=== PATIENT | male | born 1965 | race American Indian/Alaskan Native ===

== ENCOUNTER 2017-04-11 20:12 | Emergency (ER) | payer SELFPAY ==
[2017-04-11 20:39] VITALS: BP 127/90
[2017-04-11 21:16] LABS: Anion Gap 19 mmol/L; BUN/Creatinine Ratio 5.55; Blood Urea Nitrogen 5 mg/dL (9-20); Calcium 8.8 mg/dL (8.4-10.2); Carbon Dioxide 26 mmol/L (22-30); Chloride 102.3 mmol/L (98-107); Eosinophils % (Auto) 2.7 % (0.0-4.3); Glucose 95 mg/dL (75-100); Hematocrit 50.2 % (35.5-45.6); Hemoglobin 16.8 gm/dl (11.8-15.2); Mean Corpuscular HGB Conc 33 % (32-34); Mean Corpuscular Hemoglobin 33 pg (28-32); Mean Corpuscular Volume 99 fl (84-94); Platelet Count 339 K/mm3 (140-440); Potassium 4.6 mmol/L (3.6-5.0); Red Blood Count 5.06 M/mm3 (3.65-5.03); Red Cell Distribution Width 13.6 % (13.2-15.2); Sodium 143 mmol/L (137-145); White Blood Count 10.2 K/mm3 (4.5-11.0)
--- NOTE | 2017-04-13 01:30 | ED Elopement Review ---
ED Pt Elopement review - Results review Lab results: Laboratory Tests 04/11/17 04/11/17 04/11/17 20:44 20:44 20:48 WBC 10.2 RBC 5.06 H Hgb 16.8 H Hct 50.2 H MCV 99 H MCH 33 H MCHC 33 RDW 13.6 Plt Count 339 Lymph % (Auto) 41.1 H Tyrrell % (Auto) 6.7 Eos % (Auto) 2.7 Baso % (Auto) 1.0 Lymph # 4.2 Tyrrell # 0.7 Eos # 0.3 Baso # 0.1 Seg Neutrophils % 48.5 Seg Neutrophils # 5.0 Sodium 143 Potassium 4.6 Chloride 102.3 Carbon Dioxide 26 Anion Gap 19 BUN 5 L Creatinine 0.9 Estimated GFR > 60 BUN/Creatinine Ratio 5.55 Glucose 95 Calcium 8.8 Troponin T < 0.010 Blood Type O POSITIVE Antibody Screen TNR KELVIN Antibody Screen Negative - Call Back decision Pt Call Back Decision: No action required
== END 2017-04-11 22:10 | disposition left against medical advice (07) ==
LOC: ED 20:12
DX: R07.9 Chest pain, unspecified (principal); Z53.21 Procedure and treatment not carried out due to patient leaving prior to being seen by health care provider
CPT/HCPCS: 36415; 80048; 84484; 85025; 86850; 86900; 86901; 93005; 93010